=== PATIENT | female | born 1975 | race Two or more races ===

== ENCOUNTER 2023-06-09 05:13 | Emergency (ER) | payer OTHER ==
[~2023-06-09] VITALS: Ht 162.6 cm; Wt 81.6 kg
[2023-06-09] MEDS ORDERED: KETOROLAC TROMETHAMINE INJ 30 MG/ML VIAL IM STA (06:31)
[2023-06-09] MEDS ORDERED: KETOROLAC TROMETHAMINE 15 MG/ML VIAL ONE (06:40)
[2023-06-09] MEDS ORDERED: IBUP-1955 PO (06:51)
[2023-06-09 07:30] VITALS: BP 161/81; TEMP 97.9; O2SAT 100
== END 2023-06-09 07:31 | disposition home or self-care (01) ==
LOC: ER 05:16
DX: S93.602A Unspecified sprain of left foot, initial encounter (principal); W04.XXXA Fall while being carried or supported by other persons, initial encounter; Y93.89 Activity, other specified; Y92.89 Other specified places as the place of occurrence of the external cause; Y99.8 Other external cause status
CPT/HCPCS: 99283; 96372; 73630; J1885

== ENCOUNTER 2023-08-22 03:08 | Emergency (ER) | payer OTHER ==
[~2023-08-22] VITALS: Ht 162.6 cm; Wt 86.2 kg
[~2023-08-22 03:08] MED LIST: IBUP-1955 PO
[2023-08-22 06:15] VITALS: BP 126/88; TEMP 98
[2023-08-22] MEDS ORDERED: CIPR2.5D14 RIGHTEYE (06:35)
[2023-08-22 06:52] VITALS: O2SAT 100
== END 2023-08-22 06:53 | disposition home or self-care (01) ==
LOC: ER 03:08
DX: H10.9 Unspecified conjunctivitis (principal); F17.200 Nicotine dependence, unspecified, uncomplicated; Z79.899 Other long term (current) drug therapy